=== PATIENT | female | born 2000 | race Two or more races ===

== ENCOUNTER 2019-02-27 01:20 | Emergency (ER) | payer OTHER ==
[~2019-02-27] VITALS: Ht 162.6 cm; Wt 49.9 kg
[2019-02-27] MEDS ORDERED: IBUPROFEN 600 MG TAB PO ONE (06:45)
[2019-02-27] MEDS ORDERED: TETANUS-DIPTH-ACEL PERTUSSIS 0.5ML SYRG IM ONE (06:45)
[2019-02-27 07:00] VITALS: BP 106/77
== END 2019-02-27 06:51 | disposition home or self-care (01) ==
LOC: ER 01:24
DX: S61.431A Puncture wound without foreign body of right hand, initial encounter (principal); W54.0XXA Bitten by dog, initial encounter; Y93.89 Activity, other specified; Y99.8 Other external cause status; Y92.89 Other specified places as the place of occurrence of the external cause
CPT/HCPCS: 90471; 90715